=== PATIENT | female | born 1940 | race Caucasian/White ===

== ENCOUNTER 2019-10-04 13:26 | Inpatient (IN) ==
[2019-10-04] MEDS ORDERED: SODIUM CHLORIDE 0.9% 500 ML IV STA (14:31)
[2019-10-04 17:01] LABS: Alanine Aminotransferase 18 U/L (13-56); Albumin 3.5 G/DL (3.4-5.0); Alkaline Phosphatase 115 U/L (45-117); Aspartate Amino Transferase 23 U/L (0-37); Blood Urea Nitrogen 38 MG/DL (7-18); Calcium 8.8 MG/DL (8.5-10.1); Estimated Glom Filtration Rate 19 ML/MIN; Glucose 112 MG/DL (74-106); Osmolality,Calculated 271.7 MOS/KG (273-304)
[2019-10-04 17:08] LABS: Basophils % 0.4 % (0.0-0.8); Eosinophils # 0.1 10*3/uL (0.0-0.87); Hematocrit 31.9 VOL% (35.7-47.0); Hemoglobin 9.2 GM/DL (12.0-16.0); Immature Granulocytes % 0.9 %; Immature Granulocytes Absolute 0.06 #; Lymphocytes % 14.7 % (21.3-54.2); Mean Corpuscular HGB Conc 28.8 GM/DL (32-36); Mean Corpuscular Volume 74.7 FL (87-102); Mean Platelet Volume 9.7 FL (9.6-12.0); Monocytes % 6.2 % (1.7-12.7); Neutrophils % 75.8 % (38.7-73.9); Platelet Count 380 T/CUMM (130-400); Red Blood Count 4.27 MC/CUMM (3.8-5.5); Red Cell Distribution Width 16.6 % (9.3-17.3); White Blood Count 6.9 T/CUMM (4-12)
[2019-10-04 17:27] LABS: INR 0.9; PT Patient Result 10.1 SECS (9.6-12.2)
[2019-10-04 18:08] LABS: Barbiturates Screen,Urine Negative (Negative); Benzodiazepines Screen,Urine Negative (Negative); Cannabinoid Screen,Urine Negative (Negative); Opiate Screen,Urine Negative (Negative); Phencyclidine Screen,Urine Negative (Negative)
[2019-10-04 18:12] LABS: Apearance,Urine CLOUDY (Clear); Bilirubin,Urine Negative (Negative); Blood, Urine Moderate mg/dL (Negative); Glucose,Urine (UA) Negative (Negative); Ketones,Urine Negative (Negative); Mucus,Urine Moderate /LPF (Occasional); Nitrite,Urine Positive (Negative); Protein,Urine 30 MG/DL; RBC,Urine 87 /HPF (0-4); Urine Color Yellow (Yellow); Urine Specific Gravity 1.009 (1.001-1.035); Urine Urobilinogen < 2.0 EU/DL (0.2-1.0); WBC,Urine 1734 /HPF (0-6)
[2019-10-04] MEDS ORDERED: cefTRIAXone 1,000 MG in SODIUM CHLORIDE 0.9% 100 ML IV STA (18:15)
[2019-10-04] MEDS ORDERED: GLUCAGON 1 MG VIAL IM PRN (19:52)
[2019-10-04] MEDS ORDERED: DEXTROSE 10% 250 ML BAG IV PRN (19:52)
[2019-10-04] MEDS ORDERED: traMADol 50 MG TABLET PO PRN (19:53)
[2019-10-04] MEDS ORDERED: LACTULOSE 20 GM/30 ML UDCUP PO PRN (19:55)
[2019-10-04] MEDS: INSULIN REGULAR 100 UNIT/ML SUBCUT SCH (21:16)
[2019-10-04] MEDS ORDERED: DEXTROSE 50% 25 GM/50 ML VIAL IV PRN (21:48)
[2019-10-04] MEDS: SODIUM CHLORIDE 0.9% 1,000 ML IV SCH (22:04)
[2019-10-04 22:52] LABS: Troponin I < 0.015 NG/ML (0.00-0.045)
[2019-10-04] MEDS: ENOXAPARIN 30 MG/0.3 ML SYRINGE SUBCUT SCH (23:27)
[2019-10-04] MEDS: DOCUSATE SODIUM 100 MG/10 ML UDCUP PO SCH (23:29)
[2019-10-05 05:35] LABS: Basophils % 0.5 % (0.0-0.8); Eosinophils # 0.1 10*3/uL (0.0-0.87); Eosinophils % 1.9 % (0.00-10.9); Hemoglobin 8.2 GM/DL (12.0-16.0); Immature Granulocytes % 0.5 %; Immature Granulocytes Absolute 0.03 #; Lymphocytes # 0.9 10*3/uL (1.4-4.0); Mean Corpuscular HGB Conc 29.3 GM/DL (32-36); Mean Corpuscular Volume 72.9 FL (87-102); Monocytes % 9.3 % (1.7-12.7); Neutrophils % 71.8 % (38.7-73.9); Platelet Count 374 T/CUMM (130-400); Red Blood Count 3.84 MC/CUMM (3.8-5.5); Red Cell Distribution Width 16.6 % (9.3-17.3); White Blood Count 5.9 T/CUMM (4-12)
[2019-10-05 05:56] LABS: Albumin 2.9 G/DL (3.4-5.0); Bilirubin,Total 0.6 MG/DL (0.2-1.0); Calcium 8.5 MG/DL (8.5-10.1); Risk Ratio 4.26; Total Protein 6.8 G/DL (6.4-8.3); VLDL CHOLESTEROL 28.8 MG/DL
[2019-10-05 05:58] LABS: Troponin I 0.024 NG/ML (0.00-0.045)
[2019-10-05] MEDS: INSULIN REGULAR 100 UNIT/ML SUBCUT SCH ×4 (08:02→22:29)
[2019-10-05 09:37] LABS: Folate 8.4 NG/ML (5.4-24.0); Vitamin B12 271 PG/ML (211-911)
[2019-10-05] MEDS: DOCUSATE SODIUM 100 MG/10 ML UDCUP PO SCH ×3 (09:53→22:29)
[2019-10-05] MEDS: SODIUM CHLORIDE 0.9% 1,000 ML IV SCH (15:42)
[2019-10-05] MEDS ORDERED: cefTRIAXone 1,000 MG in SYRINGE 1 EACH IV SCH (18:00)
[2019-10-05] MEDS ORDERED: ISOSORBIDE DINITRATE 20 MG TABLET PO SCH (18:00)
[2019-10-05] MEDS ORDERED: CITALOPRAM 40 MG TABLET PO SCH (18:00)
[2019-10-05] MEDS ORDERED: METOPROLOL SUCCINATE XL 25 MG TABLET PO SCH (18:00)
[2019-10-05] MEDS ORDERED: PANTOPRAZOLE 40 MG TABLET PO SCH (18:00)
[2019-10-05] MEDS ORDERED: CLOPIDOGREL 75 MG TABLET PO SCH (18:00)
[2019-10-05] MEDS ORDERED: QUEtiapine 25 MG TABLET PO SCH (18:30)
[2019-10-05] MEDS: ENOXAPARIN 30 MG/0.3 ML SYRINGE SUBCUT SCH (22:14)
[2019-10-06 05:35] LABS: Calcium 8.4 MG/DL (8.5-10.1); Osmolality,Calculated 274.1 MOS/KG (273-304)
[2019-10-06] MEDS: INSULIN REGULAR 100 UNIT/ML SUBCUT SCH ×2 (08:07→12:35)
[2019-10-06] MEDS ORDERED: TUBERCULIN SKIN TEST 0.1 ML SYRINGE INTRADERM ONE (08:11)
[2019-10-06] MEDS: SODIUM CHLORIDE 0.9% 1,000 ML IV SCH (08:34)
[2019-10-06] MEDS: DOCUSATE SODIUM 100 MG/10 ML UDCUP PO SCH (08:36)
[2019-10-06 11:37] VITALS: BP 141/63
== END 2019-10-06 16:11 | disposition home health service (06) | DRG 689 ==
LOC: N.ED 13:26 → N.EDINP 19:44 → N.5E 20:15
PROVIDERS: ADMIT Internal Medicine Geriatric Medicine; ATTEND Internal Medicine Geriatric Medicine

== ENCOUNTER 2020-09-14 10:06 | Inpatient (IN) ==
[2020-09-14] MEDS ORDERED: SODIUM CHLORIDE 0.9% 1,000 ML IV STA ×4 (10:25→12:52)
[2020-09-14 11:40] LABS: Basophils # 0.1 10*3/uL (0.0-0.2); Basophils % 0.3 % (0.0-0.8); Eosinophils % 0.1 % (0.00-10.9); Hematocrit 33.4 VOL% (35.7-47.0); Hemoglobin 9.7 GM/DL (12.0-16.0); Immature Granulocytes % 3.9 %; Immature Granulocytes Absolute 1.05 #; Lymphocytes # 3.6 10*3/uL (1.4-4.0); Lymphocytes % 13.5 % (21.3-54.2); Mean Platelet Volume 9.8 FL (9.6-12.0); Monocytes % 3.8 % (1.7-12.7); Neutrophils % 78.4 % (38.7-73.9); Platelet Count 738 T/CUMM (130-400); Red Blood Count 3.71 MC/CUMM (3.8-5.5); Red Cell Distribution Width 15.1 % (9.3-17.3); White Blood Count 26.9 T/CUMM (4-12)
[2020-09-14 11:42] LABS: Alanine Aminotransferase 22 U/L (13-56); Albumin 3.2 G/DL (3.4-5.0); Alkaline Phosphatase 138 U/L (45-117); Aspartate Amino Transferase 25 U/L (0-37); Blood Urea Nitrogen 113 MG/DL (7-18); Calcium 8.5 MG/DL (8.5-10.1); Ferritin 106.1 ng/ml (8-252); Glucose 156 MG/DL (74-106); Osmolality,Calculated 302.5 MOS/KG (273-304); Total Protein 8.3 G/DL (6.4-8.3)
[2020-09-14 11:42] LABS: INR 1.1; PT Patient Result 11.5 SECS (9.8-11.9)
[2020-09-14 11:48] LABS: Estimated Glom Filtration Rate 0 ML/MIN
[2020-09-14 11:49] LABS: Band Neutrophils 1 % (0-10); Elliptocytes Few; Lymphocytes 22 % (20-55); Metamyelocytes 1 %; Microcytosis 1+; Myelocytes 1 %; Nucleated Red Blood Cells 3 (0-5); Segmented Neutrophils 72 % (50-85); Total Cells Counted 100
[2020-09-14 11:50] LABS: Hypochromasia 1+; Platelet Estimate Increased
[2020-09-14] MEDS ORDERED: SODIUM BICARBONATE 50 MEQ/50 ML VIAL IV STA ×2 (12:31→13:08)
[2020-09-14] MEDS ORDERED: PIPERACILLIN/TAZOBACTAM 3,375 MG in SODIUM CHLORIDE 0.9% 100 ML IV STA (12:32)
[2020-09-14 12:45] LABS: Bilirubin,Urine Negative (Negative); Blood, Urine Negative (Negative); Glucose,Urine (UA) 50 mg/dL (Negative); Hyaline Casts,Urine 3 /LPF (0-3); Ketones,Urine 5 mg/dL (Negative); Mucus,Urine Occasional /LPF (Occasional); Nitrite,Urine Negative (Negative); Protein,Urine 100 MG/DL; Squamous Epithelial Cell,Urine Occasional /HPF (0-10); Urine Appearance CLOUDY (Clear); Urine Color Yellow (Yellow); Urine Specific Gravity 1.016 (1.001-1.035); Urine Urobilinogen < 2.0 EU/DL (0.2-1.0); WBC,Urine 12 /HPF (0-6)
[2020-09-14 13:16] LABS: ABG HCO3 5.4 MMOL/L (20-26); ABG Oxygen Saturation 98.2 % (95-100)
[2020-09-14 13:19] LABS: ABG PCO2 18.8 MM HG (35-48)
[2020-09-14] MEDS ORDERED: DEXTROSE 50% 25 GM/50 ML VIAL IV PRN (14:08)
[2020-09-14] MEDS ORDERED: ONDANSETRON 4 MG/2 ML VIAL IV PRN (14:08)
[2020-09-14] MEDS ORDERED: GLUCAGON 1 MG VIAL IM PRN (14:08)
[2020-09-14] MEDS ORDERED: VANCOMYCIN INJ 1,000 MG in SODIUM CHLORIDE 0.9% 250 ML IV ONE (14:23)
[2020-09-14] MEDS ORDERED: SODIUM BICARB INJ 100 MEQ in SODIUM CHLORIDE 0.9% 1,000 ML IV SCH (14:30)
[2020-09-14] MEDS ORDERED: HYDROmorphone 2 MG/1 ML VIAL IV ONE (15:07)
[2020-09-14] MEDS ORDERED: LORazepam 2 MG/1 ML VIAL IV PRN (17:19)
[2020-09-14] MEDS: MORPHINE 4 MG/1 ML VIAL IV PRN ×2 (17:46→18:51)
[2020-09-15] MEDS: MORPHINE 4 MG/1 ML VIAL IV PRN (00:12)
[2020-09-15 00:27] VITALS: BP 67/25
[2020-09-15] MEDS ORDERED: PIPERACILLIN/TAZOBACTAM 3,375 MG in SODIUM CHLORIDE 0.9% 100 ML IV SCH (01:00)
[2020-09-15] MEDS ORDERED: PANTOPRAZOLE 40 MG VIAL IV SCH (17:00)
== END 2020-09-15 01:36 | disposition expired | DRG 871 ==
LOC: EDBD → EDUNIT# → N.ED 10:06 → N.EDINP 14:08 → N.5E 17:25
PROVIDERS: ADMIT Emergency Medicine; ATTEND Emergency Medicine